=== PATIENT | male | born 1985 | race Caucasian/White ===

== ENCOUNTER 2017-03-01 09:31 | Inpatient (IN) | payer BC ==
[2017-03-01] MEDS ORDERED: Diltiazem 25 MG/5 ML SDV IVPUSH STA (09:48)
[2017-03-01] MEDS: Sodium Chloride 0.9% 1,000 ML IV SCH ×2 (09:57→21:00)
[2017-03-01] MEDS ORDERED: Diltiazem 125 MG in Sodium Chloride 0.9% 100 ML IV SCH (10:00)
[2017-03-01] MEDS ORDERED: Diltiazem 125 MG/25 ML SDV ONE ×2 (10:10→10:14)
[2017-03-01] MEDS ORDERED: Sodium Chloride 0.9% 100 ML ONE (10:15)
--- NOTE | 2017-03-01 12:17 | EDM.PDOC ---
ED HPI GENERAL MEDICAL PROBLEM - General Chief Complaint: Cardiovascular Problem Stated Complaint: SOB/WEAK Time Seen by Provider: 03/01/17 09:38 Source of Information: Reports: Patient, Family (), RN Notes Reviewed History Limitations: Reports: No Limitations - History of Present Illness INITIAL COMMENTS - FREE TEXT/NARRATIVE: The patient states that he was woken with dyspnea, weakness, and palpitations, felt as a fast and irregular heartbeat, around 08:00 this morning. No prior similar symptoms. The patient states that he drinks to red bull beverages daily, on average, but he does not have any other sources of caffeine, such as coffee or soda. The patient admits that he and his drank fairly heavily last night, but that he does not usually drink heavily. The patient does not of a PCP. - Related Data Allergies Allergy/AdvReac Type Severity Reaction Status Date / Time Penicillins Allergy Hives Verified 11/15/14 20:39 Home Meds: Home Meds . 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) ED ROS GENERAL - Review of Systems Review Of Systems: See Below Constitutional: Reports: No Symptoms HEENT: Reports: No Symptoms Respiratory: Reports: No Symptoms Cardiovascular: Reports: No Symptoms Endocrine: Reports: No Symptoms GI/Abdominal: Reports: No Symptoms : Reports: No Symptoms Musculoskeletal: Reports: No Symptoms Skin: Reports: No Symptoms Neurological: Reports: No Symptoms Psychiatric: Reports: No Symptoms Hematologic/Lymphatic: Reports: No Symptoms Immunologic: Reports: No Symptoms ED EXAM, GENERAL - Physical Exam Exam: See Below Exam Limited By: No Limitations General Appearance: Alert, WD/WN, No Apparent Distress Eye Exam: Bilateral Eye: Normal Inspection Ears: Normal External Exam, Hearing Grossly Normal Nose: Normal Inspection, No Blood Throat/Mouth: Normal Inspection, Normal Lips, Normal Voice, No Airway Compromise Head: Atraumatic, Normocephalic Neck: Normal Inspection, Full Range of Motion Respiratory/Chest: No Respiratory Distress, Lungs Clear, Normal Breath Sounds, No Accessory Muscle Use Cardiovascular: Normal Peripheral Pulses, No Edema, No Gallop, No JVD, No Murmur , No Rub, Tachycardia, Irregularly Irregular Peripheral Pulses: 4+: Radial (L), Radial (R) GI/Abdominal: Normal Bowel Sounds, Soft, Non-Tender, No Organomegaly, No Distention, No Abnormal Bruit, No Mass (Male) Exam: Deferred Rectal (Males) Exam: Deferred Back Exam: Normal Inspection, Full Range of Motion, NT Extremities: Normal Inspection, Normal Range of Motion, No Pedal Edema, Normal Capillary Refill Neurological: Alert, Oriented, Normal Cognition, No Motor/Sensory Deficits Psychiatric: Normal Affect Skin Exam: Warm, Dry, Intact, Normal Color, No Rash Lymphatic: No Adenopathy Course - Vital Signs Last Recorded V/S: Last Vital Signs Temp 36.1 C 03/01/17 09:38 Pulse 138 H 03/01/17 09:38 Resp BP 134/78 03/01/17 09:38 Pulse Ox 99 03/01/17 09:38 - Orders/Labs/Meds Orders: Active Orders 24 hr Category Date Time Status EKG Documentation Completion [RC] STAT Care 03/01/17 09:46 Active Chest 2V [CR] Stat Exams 03/01/17 09:46 Taken Diltiazem 125 mg Med 03/01/17 10:00 Active Sodium Chloride 0.9% [Normal Saline] 100 ml IV TITRATE Sodium Chloride 0.9% [Normal Saline] 1,000 ml Med 03/01/17 10:00 Active IV ASDIRECTED Medication Orders Diltiazem HCl 125 mg/ Sodium (Chloride) 125 mls @ 10 mls/hr IV TITRATE BRYCE; 10 MG/HR PRN Reason: Protocol Last Admin: 03/01/17 10:22 Dose: 10 mg/hr, 10 mls/hr Sodium Chloride (Normal Saline) 1,000 mls @ 100 mls/hr IV ASDIRECTED BRYCE Last Admin: 03/01/17 09:57 Dose: 100 mls/hr Labs: Laboratory Tests 06/24/17 06/24/17 06/24/17 Range/Units 09:40 09:40 09:40 WBC 7.98 (4.23-9.07) K/mm3 RBC 5.36 (4.63-6.08) M/mm3 Hgb 16.3 (13.7-17.5) gm/L Hct 47.0 (40.1-51.0) % MCV 87.7 (79.0-92.2) fl MCH 30.4 (25.7-32.2) pg MCHC 34.7 (32.2-35.5) g/dl RDW Std Deviation 39.4 (35.1-43.9) fL Plt Count 270 (163-337) K/mm3 MPV 10.1 (9.4-12.3) fl Neutrophils % (Manual) 70 H (40-60) % Band Neutrophils % 0 (0-10) % Lymphocytes % (Manual) 21 (20-40) % Atypical Lymphs % 0 % Monocytes % (Manual) 8 (2-10) % Eosinophils % (Manual) 1 (0.8-7.0) % Basophils % (Manual) 0 L (0.2-1.2) Platelet Estimate Adequate RBC Morph Comment Normal PT 10.7 (8.0-13.0) SECONDS INR 0.98 APTT 23 (22-36) SECONDS D-Dimer, Quantitative < 0.19 L (0.19-0.59) mg/L Sodium 144 (136-145) mEq/L Potassium 3.9 (3.5-5.1) mEq/L Chloride 107 (98-107) mEq/L Carbon Dioxide 26 (21-32) mEq/L Anion Gap 14.9 (5-15) BUN 11 (7-18) mg/dL Creatinine 1.1 (0.7-1.3) mg/dL Est Cr Clr Drug Dosing 103.63 mL/min Estimated GFR (MDRD) > 60 (>60) mL/min BUN/Creatinine Ratio 10.0 L (14-18) Glucose 101 (74-106) mg/dL Calcium 9.5 (8.5-10.1) mg/dL Total Bilirubin 0.3 (0.2-1.0) mg/dL AST 16 (15-37) U/L ALT 32 (16-63) U/L Alkaline Phosphatase 57 (46-116) U/L Troponin I < 0.017 (0.00-0.056) ng/mL Total Protein 8.5 H (6.4-8.2) g/dl Albumin 4.6 (3.4-5.0) g/dl Globulin 3.9 gm/dL Albumin/Globulin Ratio 1.2 (1-2) Meds: Medications Generic Name Dose Route Start Last Admin Trade Name Freq PRN Reason Stop Dose Admin Diltiazem HCl 125 mg/ Sodium 125 mls @ 10 mls/hr 03/01/17 10:00 03/01/17 10: 22 Chloride IV 10 mg/hr TITRATE BRYCE 10 mls/hr Protocol Administration 10 MG/HR Sodium Chloride 1,000 mls @ 100 mls/hr 03/01/17 10:00 03/01/17 09:57 Normal Saline IV 100 mls/hr ASDIRECTED BRYCE Administration Discontinued Medications Generic Name Dose Route Start Last Admin Trade Name Freq PRN Reason Stop Dose Admin Diltiazem HCl 20 mg 03/01/17 09:48 03/01/17 09:57 Diltiazem IVPUSH 03/01/17 09:49 20 mg ONETIME STA Administration Diltiazem HCl Confirm 03/01/17 10:10 03/01/17 10:23 Diltiazem Administered 03/01/17 10:11 Not Given Dose 125 mg .ROUTE .STK-MED ONE Diltiazem HCl Confirm 03/01/17 10:14 03/01/17 10:23 Diltiazem Administered 03/01/17 10:15 Not Given Dose 125 mg .ROUTE .STK-MED ONE Sodium Chloride Confirm 03/01/17 10:15 03/01/17 10:24 Normal Saline Administered 03/01/17 10:16 Not Given Dose 100 mls @ as directed .ROUTE .STK-MED ONE - Radiology Interpretation Free Text/Narrative:: Two-view chest radiograph appears to be grossly normal. Cardiac silhouette is within normal limits. No pulmonary vascular congestion. No pleural effusions. No focal infiltrate. No pneumothorax. Formal read per the Radiologist pending. - Re-Assessments/Exams Free Text/Narrative Re-Assessment/Exam: 03/01/17 12:09 The patient's heart rate appears to have decreased to the 80s, while on IV Cardizem, although it appears that he is still in atrial fibrillation. 03/01/17 12:17 Test results discussed with the patient and his . Today's workup is unremarkable. His atrial fibrillation is most likely due to is excessive alcohol consumption last night (holiday heart). He remains in atrial fibrillation, now rate controlled on Cardizem drip. He will receive Lovenox. 03/01/17 12:[address] Taylor at 12:18. She accepts the patient to be admitted to the ICU. Departure - Departure Time of Disposition: 12:21 Disposition: Admitted As Inpatient 66 Condition: Fair Clinical Impression: New onset atrial fibrillation - My Orders Last 24 Hours: My Active Orders 03/01/17 09:46 EKG Documentation Completion [RC] STAT Chest 2V [CR] Stat 03/01/17 10:00 Diltiazem 125 mg Sodium Chloride 0.9% [Normal Saline] 100 ml IV TITRATE Sodium Chloride 0.9% [Normal Saline] 1,000 ml IV ASDIRECTED - Assessment/Plan Last 24 Hours: My Active Orders 03/01/17 09:46 EKG Documentation Completion [RC] STAT Chest 2V [CR] Stat 03/01/17 10:00 Diltiazem 125 mg Sodium Chloride 0.9% [Normal Saline] 100 ml IV TITRATE Sodium Chloride 0.9% [Normal Saline] 1,000 ml IV ASDIRECTED
[2017-03-01] MEDS ORDERED: Enoxaparin 100 MG/1 ML Syringe SUBCUT ONE (12:20)
--- NOTE | 2017-03-01 14:12 | PCM.HP ---
H&P History of Present Illness - General Date of Service: 03/01/17 Admit Problem/Dx: Admission Diagnosis/Problem Admission Diagnosis/Problem Atrial fibrillation Source of Information: Patient, Family, Provider History Limitations: Reports: No Limitations - History of Present Illness Initial Comments - Free Text/Narative: 31 year old with evening of drinking with his , reports shots and beers. Went to work, felt weak, lightheaded with palpitations. ED documented A Fib with RVR. He is being transferred to the ICU on a Cardizem gtt. Denies previous occurrence, rarely sees a healthcare provider. Denied CP, but did note SOB. Onset of Symptoms: Reports: Sudden Symptom Onset Date: 03/01/17 Duration of Symptoms: Reports: Hour(s):, Getting Worse Location: Reports: Chest Severity: Moderate Improves with: Reports: Medication Worsens with: Reports: Other (Red Bull/ETOH) Associated Symptoms: Reports: Shortness of Breath, Weakness - Related Data Allergies/Adverse Reactions: Allergies Allergy/AdvReac Type Severity Reaction Status Date / Time Penicillins Allergy Hives Verified 03/01/17 14:08 Home Medications: Home Meds . [No Known Home Meds] 11/15/14 [History] Past Medical History - Past Health History Medical/Surgical History: Denies Medical/Surgical History Other Genitourinary History: vasectomy - Past Surgical History HEENT Surgical History: Reports: Oral Surgery ([place] teeth extraction), Tonsillectomy Male Surgical History: Reports: Vasectomy Social & Family History - Tobacco Use Smoking Status *Q: Former Smoker Used Tobacco, but Quit: Yes Month Tobacco Last Used: unknown Second Hand Smoke Exposure: Yes - Caffeine Use Caffeine Use: Reports: Energy Drinks Other Caffeine Use: States to have at least 1 redbull energy drink a day. 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) H&P Review of Systems - Review of Systems: Review Of Systems: See Below General: Reports: Weakness HEENT: Reports: No Symptoms Pulmonary: Reports: Shortness of Breath Cardiovascular: Reports: Palpitations Gastrointestinal: Reports: No Symptoms Genitourinary: Reports: No Symptoms Musculoskeletal: Reports: No Symptoms Skin: Reports: No Symptoms Psychiatric: Reports: No Symptoms Neurological: Reports: No Symptoms Hematologic/Lymphatic: Reports: No Symptoms Immunologic: Reports: No Symptoms Exam - Exam Exam: See Below - Vital Signs Vital Signs: Last Vital Signs Temp 36.1 C 03/01/17 09:38 Pulse 80 03/01/17 13:20 Resp 12 03/01/17 13:20 BP 104/91 H 03/01/17 13:20 Pulse Ox 100 03/01/17 13:20 Weight: 210.9 kg - Exam Quality Assessment: Supplemental Oxygen, DVT Prophylaxis General: Alert, Oriented, Cooperative HEENT: Conjunctiva Clear, EOMI, Nares Patent, Pupils Equal, Pupils Reactive, PERRLA Neck: Supple, Trachea Midline Lungs: Normal Respiratory Effort Cardiovascular: Regular Rate Abdomen: Normal Bowel Sounds, Soft (Male) Exam: Deferred Rectal (Males) Exam: Deferred Back Exam: Normal Inspection Extremities: Normal Pulses Skin: Warm Neurological: Cranial Nerves Intact Neuro Extensive - Mental Status: Alert, Oriented x3, Normal Mood/Affect, Normal Cognition, Memory Intact Neuro Extensive - Motor, Sensory, Reflexes: CN II-XII Intact Psychiatric: Alert, Normal Affect, Normal Mood - Patient Data Result Diagrams: 03/01/17 09:40 03/01/17 09:40 *Q Meaningful Use (ADM) - VTE *Q VTE Criteria *Q: - Stroke *Q Stroke Criteria *Q: - AMI *Q AMI Criteria *Q: - Problem List (1) New onset atrial fibrillation SNOMED Code(s): 23942706 ICD Code: I48.91 - UNSPECIFIED ATRIAL FIBRILLATION Status: Acute Current Visit: Yes Problem List Initiated/Reviewed/Updated: Yes Orders Last 24hrs: Active Orders 24 hr Category Date Time Status Activity as Tolerated [RC] .Routine Care 03/01/17 13:47 Ordered Antiembolic Devices [RC] PER UNIT ROUTINE Care 03/01/17 13:46 Ordered EKG 12 Lead [EKG Documentation Completion] [RC] ROUTINE Care 03/02/17 09:00 Ordered Vital Signs [RC] PER UNIT ROUTINE Care 03/01/17 13:46 Ordered Regular Diet [DIET] Diet 03/01/17 Lunch Ordered BASIC METABOLIC PANEL,BMP [CHEM] DAILY Lab 03/02/17 05:00 Ordered BASIC METABOLIC PANEL,BMP [CHEM] DAILY Lab 03/03/17 05:00 Ordered BASIC METABOLIC PANEL,BMP [CHEM] DAILY Lab 03/04/17 05:00 Ordered BASIC METABOLIC PANEL,BMP [CHEM] DAILY Lab 03/05/17 05:00 Ordered CBC W/O DIFF,HEMOGRAM [HEME] MOTH@0700 Lab 03/03/17 07:00 Ordered CBC W/O DIFF,HEMOGRAM [HEME] MOTH@0700 Lab 03/06/17 07:00 Ordered CBC W/O DIFF,HEMOGRAM [HEME] MOTH@0700 Lab 03/10/17 07:00 Ordered CBC W/O DIFF,HEMOGRAM [HEME] MOTH@0700 Lab 03/13/17 07:00 Ordered CBC W/O DIFF,HEMOGRAM [HEME] MOTH@0700 Lab 03/17/17 07:00 Ordered CBC W/O DIFF,HEMOGRAM [HEME] MOTH@0700 Lab 03/20/17 07:00 Ordered CBC WITH AUTO DIFF [HEME] DAILY Lab 03/02/17 05:49 Ordered CBC WITH AUTO DIFF [HEME] DAILY Lab 03/03/17 05:49 Ordered CBC WITH AUTO DIFF [HEME] DAILY Lab 03/04/17 05:49 Ordered CBC WITH AUTO DIFF [HEME] DAILY Lab 03/05/17 05:49 Ordered DRUG SCREEN, URINE [URCHEM] Routine Lab 03/01/17 13:51 Uncollected ETOH [ETHANOL BLOOD MEDICAL] [CHEM] Routine Lab 03/01/17 18:00 Ordered LIPID PANEL [CHEM] Routine Lab 03/02/17 05:00 Ordered TSH [CHEM] Routine Lab 03/01/17 18:00 Ordered Aspirin [Halfprin] Med 03/02/17 09:00 Ordered 162 mg PO DAILY Diltiazem [Cardizem] Med 03/01/17 14:00 Ordered 30 mg PO Q8HR Enoxaparin [Lovenox] Med 03/01/17 23:00 Ordered 100 mg SUBCUT Q12HR Temazepam [Restoril] Med 03/01/17 21:00 Ordered 15 mg PO BEDTIME PRN SYDNEY Hose [Antiembolic Hose] [OM.PC] Routine Oth 03/01/17 13:46 Ordered Medication Orders Aspirin (Halfprin) 162 mg PO DAILY BRYCE Diltiazem HCl (Cardizem) 30 mg PO Q8HR BRYCE Enoxaparin Sodium (Lovenox) 100 mg SUBCUT Q12HR BRYCE Diltiazem HCl 125 mg/ Sodium (Chloride) 125 mls @ 10 mls/hr IV TITRATE BRYCE; 10 MG/HR PRN Reason: Protocol Last Admin: 03/01/17 10:22 Dose: 10 mg/hr, 10 mls/hr Sodium Chloride (Normal Saline) 1,000 mls @ 250 mls/hr IV ASDIRECTED BRYCE Last Admin: 03/01/17 09:57 Dose: 100 mls/hr Temazepam (Restoril) 15 mg PO BEDTIME PRN PRN Reason: Insomnia Assessment/Plan Comment:: Impression: ETOH/binge drinking Holiday Heart New onset A Fib/CHADS2=0/1.9% risk yearly (No ASA/Coumadin usage). Plan: ICU Cardizem gtt Oral Cardizem IVF ASA Lipid Panel Lovenox 100 mg BID ETOH/UDS DVT/GI prophylaxis
[2017-03-01] MEDS: Diltiazem IR 30 MG Tab PO SCH ×2 (14:44→22:06)
[2017-03-01] MEDS ORDERED: Diphtheria,Pertussis(Acell),Tetanus Vaccine 0.5 ML Syringe IM ONE (16:39)
[2017-03-01] MEDS ORDERED: Ibuprofen 600 MG Tab PO PRN (20:37)
[2017-03-01] MEDS ORDERED: Temazepam 15 MG Cap PO PRN (21:00)
[2017-03-01] MEDS ORDERED: Acetaminophen 325 MG Tab PO PRN (21:48)
[2017-03-01] MEDS ORDERED: Sodium Chloride 0.9% 1,000 ML IV SCH (22:00)
[2017-03-01] MEDS: Enoxaparin 100 MG/1 ML Syringe SUBCUT SCH (22:06)
[2017-03-02] MEDS: Diltiazem IR 30 MG Tab PO SCH (06:53)
[2017-03-02 08:06] VITALS: BP 118/72
[2017-03-02] MEDS ORDERED: Aspirin 81 MG Tab.EC PO SCH (09:00)
[2017-03-02] MEDS: Enoxaparin 100 MG/1 ML Syringe SUBCUT SCH (09:20)
--- NOTE | 2017-03-02 10:41 | PCM.DCSUM1 ---
Discharge Summary - Discharge Data Discharge Date: 03/02/17 Discharge Disposition: Home, Self-Care 01 Condition: Good - Discharge Diagnosis/Problem(s) (1) New onset atrial fibrillation SNOMED Code(s): 85174951 ICD Code: I48.91 - UNSPECIFIED ATRIAL FIBRILLATION Status: Acute Current Visit: Yes - Patient Instructions Diet: Usual Diet as Tolerated Activity: As Tolerated Driving: May Drive Today Showering/Bathing: May Shower Notify Provider of: Nausea and/or Vomiting - Discharge Plan Prescriptions/Med Rec: Diltiazem [Cardizem] 45 mg PO Q12HR #60 tablet Aspirin [Halfprin] 162 mg PO DAILY #100 tab.ec Home Medications: Home Meds Aspirin [Halfprin] 162 mg PO DAILY #100 tab.ec 03/02/17 [Rx] Diltiazem [Cardizem] 45 mg PO Q12HR #60 tablet 03/02/17 [Rx] Patient Handouts: Atrial Fibrillation, [id number] Referrals: PCP,None [Primary Care Provider] - Breann Hadley [Physician] - - Discharge Summary/Plan Comment DC Time >30 min.: No Discharge Summary/Plan Comment: Appt---->Dr Natividad Hadley for new PCP 2D echo, suggest on the same day as new office visit - General Info Date of Service: 03/01/17 Admission Dx/Problem (Free Text: Binge drinking episode with patient and his 1 day PAN PUSHER, he presented with A fib with RVR. Transfer to the ICU with a Cardizem drip, shortly thereafter, he was in SR. Will be DCd today with two meds: Cardizem 45 mg BID; ASA 81 mg tabs, 162 mg daily. Primary DX PAF Condition Stable Diet Regular Restrictions Avoid heavy caffeine beverages Avoid binge drinking Prescriptions Cardizem 45 mg BID ASA 162 mg daily. Appt 2D echo new PCP, Dr Natividad Hadley Functional Status: Reports: pain controlled, tolerating diet, ambulating, urinating - Review of Systems General: Reports: No Symptoms HEENT: Reports: no symptoms Pulmonary: Reports: no symptoms Cardiovascular: Reports: No Symptoms Gastrointestinal: Reports: No symptoms Genitourinary: Reports: no symptoms Musculoskeletal: Reports: no symptoms Skin: Reports: no symptoms Neurological: Reports: No Symptoms Psychiatric: Reports: no symptoms - Patient Data Vitals - Most Recent: Last Vital Signs Temp 36.9 C 06/25/17 08:00 Pulse 63 03/02/17 06:54 Resp 16 03/02/17 08:00 BP 118/72 03/02/17 08:00 Pulse Ox 100 03/02/17 08:00 Weight - Most Recent: 99.836 kg I&O - Last 24 hours: Intake & Output 03/01/17 03/02/17 03/02/17 22:59 06:59 14:59 Intake Total 1500 1898 800 Output Total 100 800 300 Balance 1400 1098 500 Lab Results - Last 24 hrs: Laboratory Results - last 24 hr 03/01/17 03/02/17 03/02/17 Range/Units 14:00 05:52 05:52 WBC 7.67 (4.23-9.07) K/mm3 RBC 4.69 (4.63-6.08) M/mm3 Hgb 14.3 (13.7-17.5) gm/L Hct 42.1 (40.1-51.0) % MCV 89.8 (79.0-92.2) fl MCH 30.5 (25.7-32.2) pg MCHC 34.0 (32.2-35.5) g/dl RDW Std Deviation 39.4 (35.1-43.9) fL Plt Count 229 (163-337) K/mm3 MPV 9.8 (9.4-12.3) fl Neut % (Auto) 53.5 (34.0-67.9) % Lymph % (Auto) 33.4 (21.8-53.1) % [place] % (Auto) 10.4 (5.3-12.2) % Eos % (Auto) 2.1 (0.8-7.0) Baso % (Auto) 0.3 (0.1-1.2) % Neut # (Auto) 4.11 (1.78-5.38) K/mm3 Lymph # (Auto) 2.56 (1.32-3.57) K/mm3 [place] # (Auto) 0.80 (0.30-0.82) K/mm3 Eos # (Auto) 0.16 (0.04-0.54) K/mm3 Baso # (Auto) 0.02 (0.01-0.08) K/mm3 Sodium 141 (136-145) mEq/L Potassium 4.1 (3.5-5.1) mEq/L Chloride 106 (98-107) mEq/L Carbon Dioxide 24 (21-32) mEq/L Anion Gap 15.1 H (5-15) BUN 17 (7-18) mg/dL Creatinine 1.0 (0.7-1.3) mg/dL Est Cr Clr Drug Dosing 114.00 mL/min Estimated GFR (MDRD) > 60 (>60) mL/min BUN/Creatinine Ratio 17.0 (14-18) Glucose 101 (74-106) mg/dL Calcium 8.5 (8.5-10.1) mg/dL Triglycerides 235 H (<150) mg/dL Cholesterol 151 (<200) mg/dL LDL Cholesterol Direct 91 (<100) mg/dL HDL Cholesterol 37.0 L (40-59) mg/dL Urine Opiates Screen Negative (NEGATIVE) Ur Buprenorphine Scrn Negative (NEGATIVE) Ur Oxycodone Screen Negative (NEGATIVE) Urine Methadone Screen Negative (NEGATIVE) Ur Propoxyphene Screen Negative (NEGATIVE) Ur Barbiturates Screen Negative (NEGATIVE) Ur Tricyclics Screen Negative (NEGATIVE) Ur Phencyclidine Scrn Negative (NEGATIVE) Ur Amphetamine Screen Negative (NEGATIVE) U Methamphetamines Scrn Negative (NEGATIVE) U Benzodiazepines Scrn Negative (NEGATIVE) U Cocaine Metab Screen Negative (NEGATIVE) U Marijuana (THC) Screen Negative (NEGATIVE) Med Orders - Current: Current Medications Acetaminophen (Tylenol) 650 mg PO Q4H PRN PRN Reason: Pain Last Admin: 03/01/17 22:32 Dose: 650 mg Aspirin (Halfprin) 162 mg PO DAILY BRYCE Last Admin: 03/02/17 08:55 Dose: 162 mg Diltiazem HCl (Cardizem) 45 mg PO Q12HR BRYCE Enoxaparin Sodium (Lovenox) 100 mg SUBCUT Q12HR BRYCE Last Admin: 03/02/17 09:20 Dose: Not Given Diltiazem HCl 125 mg/ Sodium (Chloride) 125 mls @ 10 mls/hr IV TITRATE BRYCE; 10 MG/HR PRN Reason: Protocol Last Titration: 03/02/17 00:30 Dose: 0 mg/hr, 0 mls/hr Temazepam (Restoril) 15 mg PO BEDTIME PRN PRN Reason: Insomnia Discontinued Medications Diltiazem HCl (Diltiazem) 20 mg IVPUSH ONETIME STA Stop: 03/01/17 09:49 Last Admin: 03/01/17 09:57 Dose: 20 mg Diltiazem HCl (Diltiazem) Confirm Administered Dose 125 mg .ROUTE .K-MED ONE Stop: 03/01/17 10:11 Last Admin: 03/01/17 10:23 Dose: Not Given Diltiazem HCl (Diltiazem) Confirm Administered Dose 125 mg .ROUTE .[facility] ONE Stop: 03/01/17 10:15 Last Admin: 03/01/17 10:23 Dose: Not Given Diltiazem HCl (Cardizem) 30 mg PO Q8HR [facility] Last Admin: 03/02/17 06:53 Dose: 30 mg Diphtheria/Tetanus/Acell Pertussis (Adacel) 0.5 ml IM .ONCE ONE Stop: 03/01/17 16:40 Enoxaparin Sodium (Lovenox) 100 mg SUBCUT ONETIME ONE Stop: 03/01/17 12:21 Last Admin: 03/01/17 13:04 Dose: 100 mg Sodium Chloride (Normal Saline) 1,000 mls @ 250 mls/hr IV ASDIRECTED [facility] Last Admin: 03/01/17 21:00 Dose: 100 mls/hr Sodium Chloride (Normal Saline) Confirm Administered Dose 100 mls @ as directed .ROUTE .[facility] ONE Stop: 03/01/17 10:16 Last Admin: 03/01/17 10:24 Dose: Not Given Sodium Chloride (Normal Saline) 1,000 mls @ 100 mls/hr IV ASDIRECTED [facility] Last Admin: 03/02/17 05:28 Dose: 100 mls/hr Ibuprofen (Motrin) 600 mg PO Q6H PRN PRN Reason: Pain - Exam Quality Assessment: Reports: DVT prophylaxis General: Reports: alert, oriented, cooperative, no acute distress HEENT: Reports: Pupils equal, Pupils reactive, EOMI Neck: Reports: supple, trachea midline, no JVD Lungs: Reports: Clear to auscultation, Normal respiratory effort Cardiovascular: Reports: Regular Rate, Regular Rhythm Abdomen: Reports: bowel sounds present, soft, no tenderness, no distension (Male) Exam: Deferred Rectal (Males) Exam: Deferred Back Exam: Reports: Normal Inspection Extremities: Reports: no edema, normal pulses Skin: Reports: warm, dry Neurological: Reports: no new focal deficit Psy/Mental Status: Reports: alert, normal affect, normal mood *Q Meaningful Use (DIS) - VTE *Q VTE Criteria *Q: - Stroke *Q Stroke Criteria *Q: - AMI *Q AMI Criteria *Q:
[2017-03-02] MEDS ORDERED: Diltiazem IR 30 MG Tab PO SCH (21:00)
--- NOTE | 2017-03-03 14:06 | CR ---
Chest: Two views of the chest were obtained. Comparison: No previous chest x-ray. Heart size and mediastinum are within normal limits. Lungs are clear. Bony structures appear within normal limits. Impression: 1. Nothing acute is identified on two-view chest x-ray. Diagnostic code #1
== END 2017-03-02 11:30 | disposition home or self-care (01) | DRG 201 ==
LOC: JD.ED 09:31 → JD.ICU 12:22
PROVIDERS: ADMIT Internal Medicine Cardiovascular Disease; ATTEND Internal Medicine Cardiovascular Disease
DX: I48.91 Unspecified atrial fibrillation (principal); Z88.0 Allergy status to penicillin; Z87.891 Personal history of nicotine dependence; F10.10 Alcohol abuse, uncomplicated
CPT/HCPCS: 36415; 71020; 71020-26; 80048; 80053; 80061; 80306; 84443; 84484; 85025; 85379; 85610; 85730; 93005; 96365; 96366; 96372; 99284; 99285-25; A9270-GY; G0480; J1650; J3490; J7030; J7040